=== PATIENT | female | born 1950 | race Caucasian/White ===

== ENCOUNTER 2021-12-23 07:20 | Observation (INO) ==
[2021-12-23 08:02] LABS: INR 1.03 (0.86-1.15)
[2021-12-23 08:08] LABS: Albumin 4.1 g/dL (3.2-5.2); Albumin/Globulin Ratio 1.8 (1-3); Calcium 9.2 mg/dL (8.6-10.3); Globulin 2.3 g/dL (2-4); Potassium 3.4 mmol/L (3.5-5.0); Total Bilirubin 0.5 mg/dL (0.2-1.0); Total Protein 6.4 g/dL (6.4-8.9); eGFR CKD-EPI 83.7 (>60)
[2021-12-23 08:10] LABS: Troponin I 0.01 ng/mL (<0.03)
[2021-12-23 08:20] LABS: ABS Eosinophils 0.2 10^3/ul (0-0.6); ABS Monocytes 0.9 10^3/ul (0-0.8); ABS Neutrophils 10.4 10^3/ul (1.5-7.7); Eosinophil % 1.8 %; Hematocrit 44 % (35-47); Mean Corpuscular HGB Conc 34 g/dL (31-36); Mean Corpuscular Hemoglobin 32 pg (27-31); Mean Corpuscular Volume 93 fL (80-97); Nucleated Red Blood Cells % 0.1; Platelet Count 259 10^3/uL (150-450); Red Blood Count 4.71 10^6 /uL (3.70-4.87); Red Cell Distribution Width 15 % (10-15); White Blood Count 12.5 10^3/uL (3.5-10.8)
[2021-12-23] MEDS ORDERED: Iohexol 350 (CONTRAST) 500 ML MDV IV ONE (11:07)
[2021-12-23] MEDS ORDERED: fentaNYL 100 mcg/2 ml 50 MCG/ML VIAL IV SLOW PU ONE (12:09)
[2021-12-23 12:32] LABS: Troponin I 0.02 ng/mL (<0.03)
[2021-12-23] MEDS ORDERED: KCL 10 MEQ/50 ML IVPREMIX 10 MEQ/50 ML BAG IV ONE (15:18)
[2021-12-23] MEDS ORDERED: Potassium Chlor 20 meq TAB.ER PO ONE (15:19)
[2021-12-23] MEDS ORDERED: Perflutren Lipid Microsphere 3 ML VIAL ONE (15:54)
[2021-12-23] MEDS ORDERED: Enoxaparin 40 MG/0.4 ML SYR SUBCUT SCH (16:00)
[2021-12-23] MEDS: Nicotine PATCH 14 MG/24 HR PATCH TRANSDERM SCH (18:01)
[2021-12-23] MEDS ORDERED: Ondansetron 4 mg VIAL 2 MG/ML 2 ml VIAL IV PRN (18:48)
[2021-12-23] MEDS: NF: Multivitamins/Mins AREDS2 (NF) CAP PO SCH (22:46)
[2021-12-24] MEDS ORDERED: DULoxetine DR 60 mg CAP PO SCH (09:00)
[2021-12-24] MEDS ORDERED: Cholecalciferol (VIT D3) 1,000 unit TAB PO SCH (09:00)
[2021-12-24] MEDS: NF: Multivitamins/Mins AREDS2 (NF) CAP PO SCH (09:58)
[2021-12-24] MEDS: Nicotine PATCH 14 MG/24 HR PATCH TRANSDERM SCH (09:58)
[2021-12-24 12:26] VITALS: BP 118/81
== END 2021-12-24 13:10 | disposition home or self-care (01) ==
LOC: ED 07:20 → INTOOBSV 14:35 → MEDTELE 14:35 → ED 17:43 → MEDTELE 17:45
PROVIDERS: ADMIT Hospitalist; ATTEND Hospitalist

== ENCOUNTER 2024-06-04 14:04 | Inpatient (IN) ==
[2024-06-04] MEDS: Iodixanol 320 (CONTRAST) 100 ML SDV IV ONE (17:40)
[2024-06-04 18:07] LABS: ABS Basophils 0.1 10^3/uL (0.0-0.1); ABS Eosinophils 0.2 10^3/uL (0.0-0.5); ABS Lymphocytes 1.4 10^3/uL (1.0-4.8); ABS Monocytes 0.6 10^3/uL (0.0-0.9); ABS Neutrophils 3.5 10^3/uL (1.5-7.6); ABS Nucleated RBC 0.01 10^3/ul; Eosinophil % 3.3 %; Hematocrit 40.4 % (35-45); Hemoglobin 13.8 g/dL (11.5-14.3); Lymphocyte % 24.2 %; Mean Corpuscular Hemoglobin 33.8 pg (27-33); Mean Corpuscular Hgb Conc 34.2 g/dL (31-36); Mean Corpuscular Volume 98.9 fL (80-97); Mean Platelet Volume 8.4 fL (7.5-11.2); Nucleated Red Blood Cells % 0.1 %/100WBC (0.0-0.8); Platelet Count 235 10^3/uL (150-450); Red Blood Count 4.09 10^6/uL (3.63-4.92); Red Cell Distribution Width 15.5 % (12-17); White Blood Count 5.8 10^3/uL (3.8-11.8)
[2024-06-04 18:16] LABS: Activated Partial Thrombo Time 31.2 seconds (26.0-38.0); INR 0.96 (0.83-1.13)
[2024-06-04 19:05] LABS: Albumin 3.7 g/dL (3.2-5.2); Albumin/Globulin Ratio 1.8 (1-3); Calcium 8.6 mg/dL (8.6-10.3); Creatinine, Serum 0.79 mg/dL (0.51-0.95); Globulin 2.1 g/dL (2-4); HDL Cholesterol 60.8 mg/dL; Indirect Bilirubin 0.4 mg/dL (0.3-1.0); Total Bilirubin 0.4 mg/dL (0.2-1.0); Total Protein 5.8 g/dL (6.4-8.9); eGFR CKD-EPI 78.9 (>60)
[2024-06-04 19:18] LABS: Urine Appearance Clear; Urine Bilirubin Negative (Negative); Urine Blood Negative (Negative); Urine Color Yellow; Urine Glucose Negative (Negative); Urine Ketones 1+ (Negative); Urine Nitrite 2+ (Negative); Urine Protein Negative (Negative); Urine Specific Gravity 1.028 (1.002-1.030); Urine Urobilinogen Negative (Negative); Urine pH 6.5 (5.0-8.0)
[2024-06-04 19:32] LABS: Urine Bacteria 2+ /HPF (Absent); Urine Red Blood Cell Trace(0-2/hpf) /HPF (0-Trace); Urine Squamous Epithelial Cell Present /HPF (Absent); Urine White Blood Cell 1+(6-10/hpf) /HPF (0-Trace)
[2024-06-05] MEDS: DULoxetine DR 60 mg CAP PO SCH (10:14)
[2024-06-05] MEDS: Enoxaparin 40 MG/0.4 ML SYR SUBCUT SCH (10:15)
[2024-06-05] MEDS ORDERED: Albuterol HFA INHALER 8 gm MDI INH PRN ×2 (11:02→11:20)
[2024-06-05] MEDS ORDERED: LevoCETirizine 5 mg TAB (NF) PO SCH (22:00)
[2024-06-06] MEDS: Tiotropium Brom/Olodaterol MDI (ACUTE) INH SCH (07:45)
[2024-06-06] MEDS ORDERED: Sulfur Hexaflouride MICROSPHR 25 MG VIAL ONE (15:13)
[2024-06-06] MEDS: Sulfur Hexaflouride MICROSPHR 25 MG VIAL IV ONE (16:06)
[2024-06-07] MEDS: NS 0.9% 250 ml 250 ML IV ONE (12:00)
[2024-06-08 09:02] VITALS: BP 127/72
== END 2024-06-08 09:37 | DRG 65 ==
LOC: ED 14:04 → EDHOLD 14:04 → SUATTDRO 21:21 → MEDTELE 06-05 07:47
PROVIDERS: ADMIT Internal Medicine; ATTEND Internal Medicine

== ENCOUNTER 2024-06-08 09:41 | Inpatient (IN) ==
[2024-06-08] MEDS ORDERED: Magnesium Hydroxide LIQ 30 ML UDC PO PRN (12:27)
[2024-06-09 06:42] LABS: ABS Eosinophils 0.3 10^3/uL (0.0-0.5); ABS Lymphocytes 1.4 10^3/uL (1.0-4.8); ABS Monocytes 0.6 10^3/uL (0.0-0.9); ABS Neutrophils 1.9 10^3/uL (1.5-7.6); ABS Nucleated RBC 0.01 10^3/ul; Eosinophil % 6.2 %; Hematocrit 35.8 % (35-45); Hemoglobin 12.1 g/dL (11.5-14.3); Lymphocyte % 32.4 %; Mean Corpuscular Hemoglobin 33.7 pg (27-33); Mean Corpuscular Hgb Conc 33.9 g/dL (31-36); Mean Corpuscular Volume 99.5 fL (80-97); Mean Platelet Volume 7.9 fL (7.5-11.2); Nucleated Red Blood Cells % 0.1 %/100WBC (0.0-0.8); Platelet Count 229 10^3/uL (150-450); Red Cell Distribution Width 15.5 % (12-17); White Blood Count 4.2 10^3/uL (3.8-11.8)
[2024-06-09 07:11] LABS: Albumin 3.1 g/dL (3.2-5.2); Albumin/Globulin Ratio 1.8 (1-3); Calcium 8.3 mg/dL (8.6-10.3); Creatinine, Serum 0.7 mg/dL (0.51-0.95); Globulin 1.7 g/dL (2-4); Potassium 4.1 mmol/L (3.5-5.0); Total Bilirubin 0.4 mg/dL (0.2-1.0); Total Protein 4.8 g/dL (6.4-8.9); eGFR CKD-EPI 91.3 (>60)
[2024-06-09] MEDS: Aspirin EC 81 mg TAB.EC (enteric coated) PO SCH (09:31)
[2024-06-09] MEDS: DULoxetine DR 60 mg CAP PO SCH (09:32)
[2024-06-09] MEDS: Enoxaparin 40 MG/0.4 ML SYR SUBCUT SCH (09:33)
[2024-06-09] MEDS: Tiotropium Brom/Olodaterol MDI (ACUTE) INH SCH (09:33)
[2024-06-09] MEDS: Senna TAB 8.6 mg TAB PO PRN (20:17)
[2024-06-16 05:12] VITALS: BP 143/59
[2024-06-16 06:44] LABS: ABS Basophils 0.1 10^3/uL (0.0-0.1); ABS Eosinophils 0.2 10^3/uL (0.0-0.5); ABS Lymphocytes 1.4 10^3/uL (1.0-4.8); ABS Monocytes 0.6 10^3/uL (0.0-0.9); ABS Neutrophils 2.3 10^3/uL (1.5-7.6); Eosinophil % 5.4 %; Hematocrit 32.5 % (35-45); Hemoglobin 11.3 g/dL (11.5-14.3); Mean Corpuscular Hemoglobin 34.5 pg (27-33); Mean Corpuscular Hgb Conc 34.7 g/dL (31-36); Mean Corpuscular Volume 99.4 fL (80-97); Mean Platelet Volume 7.9 fL (7.5-11.2); Platelet Count 228 10^3/uL (150-450); Red Blood Count 3.27 10^6/uL (3.63-4.92); Red Cell Distribution Width 15.1 % (12-17); White Blood Count 4.5 10^3/uL (3.8-11.8)
[2024-06-16 07:05] LABS: Albumin 3.2 g/dL (3.2-5.2); Calcium 8.1 mg/dL (8.6-10.3); Creatinine, Serum 0.81 mg/dL (0.51-0.95); Globulin 1.6 g/dL (2-4); Potassium 3.9 mmol/L (3.5-5.0); Total Bilirubin 0.3 mg/dL (0.2-1.0); Total Protein 4.8 g/dL (6.4-8.9); eGFR CKD-EPI 76.1 (>60)
== END 2024-06-16 12:30 | disposition home or self-care (01) | DRG 65 ==
LOC: PMRU 10:50
PROVIDERS: ADMIT Physical Medicine & Rehabilitation; ATTEND Physical Medicine & Rehabilitation